=== PATIENT | female | born 1995 | race Caucasian/White ===

== ENCOUNTER 2017-02-26 22:28 | Inpatient (IN) | payer OTHER ==
[~2017-02-26] VITALS: Ht 160 cm; Wt 68.9 kg
[~2017-02-26 22:28] MED LIST: AMPHETAMINE SAL30 MG PO; BIOTIN1000 MCG PO; MULTIVITAMIN1 TAB PO; SYNTHROID0.112 MG PO; TAMIFLU 75MG75 MG PO
[2017-02-26 23:27] LABS: ABSOLUTE BASOPHIL COUNT 0 /CUMM (0.0-0.2); ABSOLUTE EOSINOPHIL COUNT 0.2 /CUMM (0.0-0.7); ABSOLUTE GRANULOCYTE CT 6.6 /CUMM (1.4-6.5); ABSOLUTE LYMPH COUNT 2.5 /CUMM (1.2-3.4); ABSOLUTE MONOCYTE COUNT 1.1 /CUMM (0.10-0.60); BASOPHIL % 0.2 % (0.0-2.0); EOSINOPHIL % 1.6 % (0-5); GRANULOCYTE % 63.8 % (42.2-75.2); HEMATOCRIT 34.5 % (37-47); MEAN CORPUSCULAR HGB CONC 32.5 G/DL (33.0-37.0); MEAN CORPUSCULAR VOLUME 67.7 FL (81.0-99.0); MEAN PLATELET VOLUME 8.6 FL (7.4-10.4); PLATELET COUNT 269 /CUMM (130-400); RBC DISTRIBUTION WIDTH 14.4 % (11.5-14.5); WHITE BLOOD CELL COUNT 10.3 /CUMM (4.8-10.8)
--- NOTE | 2017-02-27 01:12 | History & Physical ---
General Information and HPI MD Statement: I have seen and personally examined CHALINO ADKINS and documented this H&P. The patient is a 21 year old female at [] weeks and [] days gestation who presented with a chief complaint ofSROM []. History of Present Illness: 21YO WF PRESENTS IN LABOR AT 4CM SROM CLEAR WITH CTX Q2 MINUTES WANTAS EPIDURAL AT 7-8 CM Allergies/Medications Allergies: Coded Allergies: NO KNOWN ALLERGIES (02/20/15) Home Med list Amphetamine Salt Combination (Amphetamine Salt Combo) 30 MG TAB 1 TAB PO 5XWEEK ADD (Reported) Biotin (Unknown Strength) TAB (Unknown Dose) PO DAILY SUPPLEMENT (Reported) Levothyroxine Sodium (Synthroid) 0.112 MG TAB 0.112 MG PO DAILY AC THYROID ( Reported) Multivitamin (Multiple Vitamins) 1 EACH TABLET 1 TAB PO DAILY SUPPLEMENT ( Reported) Oseltamivir Phosphate (Tamiflu 75MG) 75 MG CAPSULE 1 TAB PO BID INFLUENZA 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 No Contractions: Q2 Patient for Induction? No Labs Blood Type & Rh: A+ Antibody Screen: NEG Hct/Hgb & Platelets #1: Hct/Hgb & Platelets #2: PENDING Rubella: IMMUNE VDRL #1: NR VDRL #2: PENDING HbsAg: NEG HIV #1: NEG HIV #2 NONE 1 Hr P Group B Strep: POSITIVE Initial Ultrasound: 6LBS Anatomy Ultrasound: NEG Genetic Testing: NEG Last 24 Hrs of Labs/Kimo: Laboratory Tests 02/26/17 2300: CBC w Diff NO MAN DIFF REQ, RBC 5.10, MCV 67.7 L, MCH 22.0 L, RDW 14.4, MPV 8.6, Gran % 63.8, Lymphocytes % 24.1, Monocytes % 10.3 H, Eosinophils % 1.6, Basophils % 0.2, Absolute Granulocytes 6.6 H, Absolute Lymphocytes 2.5, Absolute Monocytes 1.1 H, Absolute Eosinophils 0.2, Absolute Basophils 0, PUBS MCHC 32.5 L Assessment/Plan As Ranked By This Provider Problem List: 1. Core Measures/Miscellaneous Venous Thromboembolism VTE Risk Factors: / VTE Contraindications: No Contraindications VTE Diagnosis: No Beta Jamila Is Beta Jamila a Home Med? No Antibiotics Is Patient on Antibiotics? No
--- NOTE | 2017-02-27 05:42 | Labor & Delivery Summary ---
Delivery Summary Vaginal Delivery: Vaginal: vertex Episiotomy/Lacerations: Episiotomy/Lacerations: laceration bilateral on labia majora Repair: 20 Anesthesia: epidural Placenta: Placenta: spontanteous Anesthesia: block Additional Comments: Spontaneous vaginal delivery over bilateral lacerations suctioned with bulb cord doubly clamped and cut placenta by continuous cord traction. Intact placenta to pathology secondary group B strep status and rupture lacerations repaired in layers with 20 hemostasis apparent patient is A+
[2017-02-27] MEDS ORDERED: IBUPROFEN800 M1 PO (05:44)
[2017-02-28 08:13] LABS: ABSOLUTE BASOPHIL COUNT 0.1 /CUMM (0.0-0.2); ABSOLUTE GRANULOCYTE CT 8.4 /CUMM (1.4-6.5)
[2017-02-28 08:42] LABS: ABSOLUTE EOSINOPHIL COUNT 0.2 /CUMM (0.0-0.7); ABSOLUTE LYMPH COUNT 2.2 /CUMM (1.2-3.4); ABSOLUTE MONOCYTE COUNT 1.1 /CUMM (0.10-0.60); BASOPHIL % 0.6 % (0.0-2.0); EOSINOPHIL % 1.3 % (0-5); GRANULOCYTE % 70.6 % (42.2-75.2); HEMATOCRIT 29.6 % (37-47); MEAN CORPUSCULAR HGB 21.9 PG (27.0-31.0); MEAN CORPUSCULAR HGB CONC 31.8 G/DL (33.0-37.0); MEAN CORPUSCULAR VOLUME 68.9 FL (81.0-99.0); MEAN PLATELET VOLUME 8.3 FL (7.4-10.4); PLATELET COUNT 199 /CUMM (130-400); RBC DISTRIBUTION WIDTH 14.6 % (11.5-14.5); RED BLOOD CELL CT 4.29 /CUMM (4.20-5.40); WHITE BLOOD CELL COUNT 11.9 /CUMM (4.8-10.8)
--- NOTE | 2017-02-28 10:12 | PN- Post Delivery/GYN ---
Subjective Subjective: Overall doing well this morning. Pain controlled well with PO meds. Ambulating and tolerating PO well. Voiding well. No flatus yet. Not . Feeling tired this morning and somewhat overwhelmed. Teary this morning. Denies SI/HI. Review of Systems: per above Objective Last 24 Hrs of Vital Signs/I&O 98.5 88 18 110/60 98% Physical Exam: Teary eyed, but overall well looking RRR S1 and S2 CTAB Good BS, minimal TTP Minimal edema, no tenderness. Current Medications: Current Medications Sig/Jonathon Start time Last Medication Dose Route Stop Time Status Admin Acetaminophen 650 MG .STK-MED ONE 02/28 0035 DC PO 02/28 0036 Acetaminophen 650 MG Q4P PRN 02/27 0545 AC 02/28 PO 0053 Ampicillin 1,000 MG Q4H 02/27 0300 DC 02/27 Sodium Chloride 100 ML IV 0302 Docusate Sodium 100 MG BID PRN 02/27 0545 AC 02/27 PO 2221 Hydroxyzine HCl 50 MG AT BEDTIME NEED.. 02/27 0545 AC PO Ibuprofen 800 MG Q6P PRN 02/27 0545 AC 02/28 PO 0500 Lactated Ringer's 1,000 ML Q8H 02/26 2300 DC 02/26 IV 2255 Levothyroxine Sodium 0.2 MG DAILY AC 02/27 1735 AC 02/27 PO 1845 Oxytocin 20 UNITS Q5H 02/27 0545 DC Lactated Ringer's 1,000 ML IV 02/27 1044 Senna 374 MG AT BEDTIME NEED.. 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 Patient likely will formula feed. 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 Patient to keep an eye on symptoms and let us know if any problems. Mood - Currently teary and tired and feeling overwhelmed. - Patient encouraged to talk to to take care of infant while patient is recovering. - Will reassess in AM when patient gets more sleep to see if requiring medication for blues. Attending MD Review Statement Attending Statement Attending MD Statement: examined this patient, discussed with family, discussed with nursing
[2017-03-01] MEDS ORDERED: SYNTHROID150 MCG PO (09:38)
--- NOTE | 2017-03-01 09:57 | PN- Post Delivery/GYN ---
Subjective Subjective: Overall doing well this morning, improved from yesterday. Had good night sleep. Pain controlled well with PO meds. Ambulating and tolerating PO well. Voiding well. +BM Not . Review of Systems: per above Objective Last 24 Hrs of Vital Signs/I&O 98.8 96 20 98/62 98% Current Medications: Current Medications Sig/Jonathon Start time Last Medication Dose Route Stop Time Status Admin Acetaminophen 650 MG Q4P PRN 02/27 0545 AC 02/28 PO 0053 Docusate Sodium 100 MG BID PRN 02/27 0545 AC 02/27 PO 2221 Hydroxyzine HCl 50 MG AT BEDTIME NEED.. 02/27 0545 AC PO Ibuprofen 800 MG .STK-MED ONE 02/28 2225 DC PO 02/28 2226 Ibuprofen 800 MG .STK-MED ONE 02/283 DC PO 02/28 2224 Ibuprofen 800 MG Q6P PRN 02/27 0545 AC 02/28 PO 2236 Levothyroxine Sodium 0.15 MG DAILY AC 02/28 1200 AC 03/01 PO 0743 Levothyroxine Sodium 0.2 MG DAILY AC 02/27 1735 DC 02/27 PO 1845 Assessment/Plan Assessment/Plan 21 yo female PPD#1 s/p Doing well overall Continue pain control Continue to encourage ambulation and regular diet Hypothyroid - TSH normal (on lower end) - Continue new dose of Synthroid 150mcg. Will plan to send home with new Rx. 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 Mood - Much improved now, no concern at this time Ok to go home today. Precautions given. Voiced understanding. Attending MD Review Statement Attending Statement Attending MD Statement: examined this patient, discussed with family, discussed with nursing
== END 2017-03-01 12:15 | DRG 560 ==
LOC: CBCO 22:28 → GNO 22:43
PROVIDERS: Specialist; ADMIT Obstetrics & Gynecology
PROC: 0UQMXZZ Repair Vulva, External Approach (ICD-10-PCS; principal; 2017-02-27)
DX: O70.0 First degree perineal laceration during delivery (principal); Z3A.39 39 weeks gestation of pregnancy; Z37.0 Single live birth; O99.824 Streptococcus B carrier state complicating childbirth; Z85.850 Personal history of malignant neoplasm of thyroid
CPT/HCPCS: GNOP; GNOS; 81001; 87086; 88307; J0290; J7120